=== PATIENT | female | born 1975 | race African-American/Black ===

== ENCOUNTER 2024-07-13 21:29 | Emergency (ER) | payer SELFPAY ==
[~2024-07-13] VITALS: Ht 180.3 cm; Wt 170.0 kg
[2024-07-13 21:32] VITALS: O2SAT 99
[2024-07-13 21:51] VITALS: TEMP 36.8
[2024-07-13 22:48] LABS: BASOPHILS % 0.3 % (0.0-2.0); DIFFERENTIAL COMMENT 0; EOSINOPHILS % 1.3 % (0.0-5.0); HEMATOCRIT. 40.6 % (36.0-48.0); HEMOGLOBIN. 12.9 g/dL (12.0-16.0); LYMPHOCYTES % 30.9 % (20.0-50.0); MEAN CORPUSCULAR HEMOGLOBIN 25.4 pg (28.0-32.0); MEAN CORPUSCULAR HGB CONC 31.7 g/dL (31.0-37.0); MEAN CORPUSCULAR VOLUME 80.4 fL (81.0-99.0); MEAN PLATELET VOLUME 11.5 fl (7.4-10.4); MONOCYTES % 7.6 % (2.0-8.0); NEUTROPHILS % 59.9 % (40.0-76.0); PLATELET 168 x1000/uL (130-400); RED BLOOD CELL COUNT 5.05 mill/uL (4.2-5.4); RED CELL DISTRIBUTION WIDTH 13.4 % (11.6-14.6)
[2024-07-13 22:55] LABS: CARBON DIOXIDE 32 mEq/L (21-32); CHLORIDE 103 mEq/L (98-107); POTASSIUM 4.2 mEq/L (3.5-5.1); SODIUM 141 mEq/L (136-145)
[2024-07-13 22:56] LABS: CALCIUM 9.5 mg/dL (8.7-10.4)
[2024-07-13 22:57] LABS: PROTHROMBIN TIME 10.3 sec (9.6-11.0)
[2024-07-13 23:00] LABS: CREATININE 0.8 mg/dL (0.6-1.0); HCG SCREEN NEGATIVE
[2024-07-13 23:01] LABS: ETHANOL BLOOD < 10 mg/dL (<10); GLUCOSE 317 mg/dL (70-105); UREA NITROGEN BLOOD 11 mg/dL (9-23)
[2024-07-13] MEDS: DIPHENHYDRAMINE 50MG/ML VIAL IV ONE (23:03)
[2024-07-13] MEDS: KETOROLAC 30MG/ML VIAL IV ONE (23:04)
[2024-07-13] MEDS: METOCLOPRAMIDE HCL 10MG/2ML VIAL IV ONE (23:04)
[2024-07-13] MEDS ORDERED: METO-293 MT (23:36)
[2024-07-13] MEDS ORDERED: ASPI-1154 PO (23:36)
[2024-07-14 00:05] VITALS: BP 159/74; PULSE 66; RESP 18; O2SAT 99
[2024-07-17] MEDS ORDERED: METF-1149 PO (10:07)
[2024-07-18] MEDS ORDERED: GLIP5TAB22 MT ×2 (14:49→14:51)
[2024-07-18] MEDS ORDERED: ASPI1TAB8 PO (14:50)
== END 2024-07-14 00:28 | disposition home or self-care (01) ==
LOC: ER 21:29
DX: G43.109 Migraine with aura, not intractable, without status migrainosus (principal); I10 Essential (primary) hypertension; Z79.899 Other long term (current) drug therapy
CPT/HCPCS: 80048; 80320; 84703; 85025; 85610; 86850; 86900; 86901; 36415; 70450; 96374; 96375; 99285; J1200; J1885; J2765; G0480